=== PATIENT | female | born 1975 | race Two or more races ===

== ENCOUNTER → 2022-08-04 | Outpatient (CLI) | payer OTHER | END | disposition home or self-care (01) | LOC: MAMO-SONO 08:08 | DX: N63.10 Unspecified lump in the right breast, unspecified quadrant (principal); N64.1 Fat necrosis of breast; Z80.3 Family history of malignant neoplasm of breast; E04.1 Nontoxic single thyroid nodule; E03.9 Hypothyroidism, unspecified ==

== ENCOUNTER 2022-08-14 08:03 | Outpatient (CLI) | payer OTHER | END 2022-08-14 08:14 | disposition home or self-care (01) | LOC: TOM 08:03 | DX: R11.2 Nausea with vomiting, unspecified (principal); R42 Dizziness and giddiness ==

== ENCOUNTER 2023-03-01 11:24 | Outpatient (CLI) | payer OTHER ==
[2023-03-01 12:29] LABS: URINE APPEARANCE Clear; URINE BILIRRUBIN Negative (NEGATIVE); URINE BLOOD Negative; URINE COLOR Yellow; URINE GLUCOSE Negative (NEGATIVE); URINE LEUKOCYTE Small; URINE NITRATE Negative; URINE PROTEIN Negative (NEGATIVE); URINE UROBILINOGEN 0.2 E.U./dl
[2023-03-01 12:31] LABS: URINE BACTERIA 259.5 uL (0.0-1933); URINE WBC 16.8 uL (0.0-23.2)
[2023-03-01 12:46] LABS: HEMATOCRIT 37.8 % (36.0-45.00); HEMOGLOBIN 12.9 g/dL (12.0-15.00); MEAN CELL VOLUME 91.8 fL (80.00-100.00); MEAN CORPUSCULAR HEMOGLOBIN 31.3 pg (27.00-32.0); PLATELET COUNT 387 K/uL (150-450); RED BLOOD COUNT 4.11 M/uL (4.00-6.00); RED CELL DISTRIBUTION WIDTH 13.3 % (11.5-14.5)
[2023-03-01 13:10] LABS: ALBUMIN 3.9 gm/dL (3.4-5.0); BILIRUBIN TOTAL 0.41 mg/dL (0.3-1.2); CALCIUM 9.3 mg/dL (8.5-10.1); CHOL HDL RATIO 2.9 (0-5.0); CREATININE SERUM 1.14 mg/dL (0.55-1.02); GFR 50.45; GLOBULINA 3.5 G/DL (2.4-3.5); POTASSIUM 3.88 mEq/L (3.5-5.1); T4 FREE 1.16 NG/ML (0.76-1.46); TOTAL PROTEIN 7.4 gm/dL (6.4-8.2); TSH 2.02 uIU/mL (0.358-3.74)
== END 2023-03-01 11:25 | disposition home or self-care (01) ==
LOC: LAB 11:24
PROVIDERS: ATTEND General Practice
DX: E78.2 Mixed hyperlipidemia (principal); E03.9 Hypothyroidism, unspecified; I11.9 Hypertensive heart disease without heart failure; E16.2 Hypoglycemia, unspecified; E04.1 Nontoxic single thyroid nodule; M81.0 Age-related osteoporosis without current pathological fracture; M41.83 Other forms of scoliosis, cervicothoracic region; Z80.8 Family history of malignant neoplasm of other organs or systems; N95.8 Other specified menopausal and perimenopausal disorders

== ENCOUNTER 2023-03-01 12:29 | Outpatient (CLI) | payer OTHER | END 2023-03-01 12:33 | disposition home or self-care (01) | LOC: RAD 12:29 | PROVIDERS: ATTEND General Practice | DX: M41.83 Other forms of scoliosis, cervicothoracic region (principal) ==

== ENCOUNTER 2023-03-10 12:41 | Outpatient (CLI) | payer OTHER | END 2023-03-10 12:42 | disposition home or self-care (01) | LOC: NUCLEAR 12:41 | PROVIDERS: ATTEND General Practice | DX: N95.0 Postmenopausal bleeding (principal); E04.1 Nontoxic single thyroid nodule ==

== ENCOUNTER 2023-06-02 08:18 | Outpatient (CLI) | payer OTHER | END 2023-06-02 08:19 | disposition home or self-care (01) | LOC: NUCLEAR 08:18 | DX: E04.1 Nontoxic single thyroid nodule (principal); E03.9 Hypothyroidism, unspecified ==

== ENCOUNTER 2023-06-03 08:34 | Outpatient (CLI) | payer OTHER | END 2023-06-03 08:37 | disposition home or self-care (01) | LOC: NUCLEAR 08:34 | PROVIDERS: ATTEND General Practice | DX: E04.1 Nontoxic single thyroid nodule (principal); E03.9 Hypothyroidism, unspecified ==

== ENCOUNTER 2023-10-27 08:10 | Outpatient (CLI) | payer OTHER | END 2023-10-27 08:21 | disposition home or self-care (01) | LOC: MAMO-SONO 08:10 | DX: N64.4 Mastodynia (principal); N63.10 Unspecified lump in the right breast, unspecified quadrant ==

== ENCOUNTER 2023-10-28 08:22 | Outpatient (CLI) | payer OTHER ==
[2023-10-28 08:57] LABS: PH,URINE 5.5 (5.0-8.0); URINE APPEARANCE Cloudy; URINE BILIRRUBIN Negative (NEGATIVE); URINE BLOOD Negative; URINE COLOR Yellow; URINE GLUCOSE Negative (NEGATIVE); URINE KETONE Negative (NEGATIVE); URINE LEUKOCYTE Negative; URINE NITRATE Negative; URINE PROTEIN Negative (NEGATIVE); URINE UROBILINOGEN 0.2 E.U./dl
[2023-10-28 09:00] LABS: URINE BACTERIA 173.8 uL (0.0-1933); URINE RBC 2.4 uL (0.0-20.8); URINE WBC 6.3 uL (0.0-23.2)
[2023-10-28 09:08] LABS: HEMATOCRIT 37.9 % (36.0-45.00); HEMOGLOBIN 12.9 g/dL (12.0-15.00); MEAN CELL VOLUME 92.3 fL (80.00-100.00); MEAN CORPUSCULAR HEMOGLOBIN 31.3 pg (27.00-32.0); MEAN CORPUSCULAR HGB CONC 33.9 g/dl (32.0-36.0); PLATELET COUNT 361 K/uL (150-450); RED BLOOD COUNT 4.11 M/uL (4.00-6.00); RED CELL DISTRIBUTION WIDTH 13.4 % (11.5-14.5)
[2023-10-28 10:25] LABS: ALBUMIN 3.8 gm/dL (3.4-5.0); BILIRUBIN TOTAL 0.44 mg/dL (0.3-1.2); CALCIUM 9.8 mg/dL (8.5-10.1); CHOL HDL RATIO 3.5 (0-5.0); CREATININE SERUM 1.01 mg/dL (0.55-1.02); GFR 58.02; GLOBULINA 3.4 G/DL (2.4-3.5); MAGNESIUM 2.2 mg/dL (1.8-2.4); POTASSIUM 4.78 mEq/L (3.5-5.1); TOTAL PROTEIN 7.2 gm/dL (6.4-8.2)
[2023-10-28 11:06] LABS: VITAMIN D3 25 HYDROXY 50.55 ng/ml (30-120)
== END 2023-10-28 08:23 | disposition home or self-care (01) ==
LOC: LAB 08:22
PROVIDERS: ATTEND General Practice
DX: E03.9 Hypothyroidism, unspecified (principal); E04.1 Nontoxic single thyroid nodule; E66.9 Obesity, unspecified; E78.2 Mixed hyperlipidemia; Z85.9 Personal history of malignant neoplasm, unspecified; M62.830 Muscle spasm of back; E16.2 Hypoglycemia, unspecified

== ENCOUNTER 2024-03-14 07:52 | Outpatient (CLI) | payer OTHER ==
[2024-03-14 08:50] LABS: PH,URINE 5.5 (5.0-8.0); URINE APPEARANCE Clear; URINE BILIRRUBIN Negative (NEGATIVE); URINE BLOOD Negative; URINE COLOR Yellow; URINE GLUCOSE Negative (NEGATIVE); URINE KETONE Negative (NEGATIVE); URINE LEUKOCYTE Negative; URINE NITRATE Negative; URINE PROTEIN Negative (NEGATIVE)
[2024-03-14 08:54] LABS: URINE BACTERIA 78.3 uL (0.0-1933); URINE EPITHELIAL CELLS 16.6 uL (0.0-38.8); URINE RBC 7.2 uL (0.0-20.8); URINE WBC 6.8 uL (0.0-23.2)
[2024-03-14 08:59] LABS: HEMATOCRIT 36.7 % (36.0-45.00); HEMOGLOBIN 12.2 g/dL (12.0-15.00); MEAN CELL VOLUME 93.2 fL (80.00-100.00); MEAN CORPUSCULAR HEMOGLOBIN 30.9 pg (27.00-32.0); MEAN CORPUSCULAR HGB CONC 33.1 g/dl (32.0-36.0); PLATELET COUNT 277 K/uL (150-450); RED BLOOD COUNT 3.94 M/uL (4.00-6.00); RED CELL DISTRIBUTION WIDTH 13.3 % (11.5-14.5)
[2024-03-14 09:08] LABS: URINE CAST 0.29 uL (0.0-1.40)
[2024-03-14 09:47] LABS: ALBUMIN 3.5 gm/dL (3.4-5.0); BILIRUBIN TOTAL 0.29 mg/dL (0.3-1.2); CALCIUM 8.8 mg/dL (8.5-10.1); GFR 58.45; GLOBULINA 3.1 G/DL (2.4-3.5); POTASSIUM 4.08 mEq/L (3.5-5.1); T4 FREE 0.99 NG/ML (0.76-1.46); TOTAL PROTEIN 6.6 gm/dL (6.4-8.2); TSH 1.06 uIU/mL (0.358-3.74)
[2024-03-14 10:37] LABS: FOLIC ACID 10.56 ng/ml (4.78-20)
[2024-03-15 06:04] LABS: INSULIN LEVELS 14.6 uIU/mL (2.6-24.9)
== END 2024-03-14 07:59 | disposition home or self-care (01) ==
LOC: LAB 07:52
PROVIDERS: ATTEND General Practice
DX: R42 Dizziness and giddiness (principal); I11.9 Hypertensive heart disease without heart failure; E66.9 Obesity, unspecified; Z80.3 Family history of malignant neoplasm of breast; E78.2 Mixed hyperlipidemia; E16.2 Hypoglycemia, unspecified; M10.00 Idiopathic gout, unspecified site; E04.1 Nontoxic single thyroid nodule; I33.9 Acute and subacute endocarditis, unspecified

== ENCOUNTER 2024-06-23 07:36 | Outpatient (CLI) | payer OTHER | END 2024-06-23 07:49 | disposition home or self-care (01) | LOC: TOM 07:36 | PROVIDERS: ATTEND General Practice | DX: J45.50 Severe persistent asthma, uncomplicated (principal); J06.9 Acute upper respiratory infection, unspecified; R53.83 Other fatigue; I11.9 Hypertensive heart disease without heart failure; R06.02 Shortness of breath ==

== ENCOUNTER 2024-10-31 08:07 | Outpatient (CLI) | payer OTHER | END 2024-10-31 08:10 | disposition home or self-care (01) | LOC: MAMO-SONO 08:07 | PROVIDERS: ATTEND Obstetrics & Gynecology | DX: N60.11 Diffuse cystic mastopathy of right breast (principal) ==